=== PATIENT | female | born 1960 | race Two or more races ===

== ENCOUNTER 2018-10-22 09:43 | Outpatient (CLI) | payer OTHER | END 2018-10-22 09:45 | disposition home or self-care (01) | LOC: RAD 09:43 | DX: D06.7 Carcinoma in situ of other parts of cervix (principal); D64.89 Other specified anemias; N39.0 Urinary tract infection, site not specified; R79.1 Abnormal coagulation profile; Z01.818 Encounter for other preprocedural examination ==

== ENCOUNTER 2023-12-15 21:29 | Emergency (ER) | payer OTHER ==
[~2023-12-15] VITALS: Ht 163.8 cm; Wt 77.1 kg
[~2023-12-15 21:29] MED LIST: CELEBREX50 MG PO; FIORICET PO; HYDROCHLOROTH12.5 MG PO; UNISON PO
[2023-12-15] MEDS ORDERED: TETANUS & DIPHTHERIA TOX,ADULT 0.5 ML VIAL IM STA (21:54)
== END 2023-12-15 22:04 | disposition home or self-care (01) ==
LOC: ER 21:29
DX: S60.475A Other superficial bite of left ring finger, initial encounter (principal); W54.0XXA Bitten by dog, initial encounter; Y93.89 Activity, other specified; Y92.89 Other specified places as the place of occurrence of the external cause; Y99.8 Other external cause status; Z88.0 Allergy status to penicillin

== ENCOUNTER → 2024-06-29 | Emergency (ER) | payer OTHER ==
[~2024-06-29] VITALS: Ht 165.1 cm; Wt 73.5 kg
[~2024-06-29] MED LIST changes: +BENZONATATE 100 MG CAPSULE PO ONE; +BENZONATATE200 M1 PO; +FAMOtidine 10 MG/ML (4ML VIAL) IV ONE; +LEVALBUTER0.63 MG/3 IH; +LEVALBUTEROL HCL 1.25 MG/3 ML SOLUTION IH ONE; +MEDROLPACK PO; +METHYLPREDNISOLONE SOD SUCC 40 MG VIAL IM ONE; +PEPCID AC20 MG PO
[2024-06-29 11:48] LABS: HEMATOCRIT 37.2 % (36.0-45.00); HEMOGLOBIN 12.8 g/dL (12.0-15.00); MEAN CELL VOLUME 86.6 fL (80.00-100.00); MEAN CORPUSCULAR HEMOGLOBIN 29.9 pg (27.00-32.0); MEAN CORPUSCULAR HGB CONC 34.5 g/dl (32.0-36.0); PLATELET COUNT 218 K/uL (150-450); RED BLOOD COUNT 4.29 M/uL (4.00-6.00); RED CELL DISTRIBUTION WIDTH 13.5 % (11.5-14.5)
== END | disposition home or self-care (01) ==
LOC: ER 09:02
PROVIDERS: General Practice
DX: J00 Acute nasopharyngitis [common cold] (principal); R05.9 Cough, unspecified; Z20.822 Contact with and (suspected) exposure to COVID-19; Z88.0 Allergy status to penicillin

== ENCOUNTER 2024-08-04 23:29 | Emergency (ER) | payer OTHER ==
[~2024-08-04] VITALS: Ht 162.6 cm; Wt 71.7 kg
[~2024-08-04 23:29] MED LIST changes: -BENZONATATE 100 MG CAPSULE PO ONE; -FAMOtidine 10 MG/ML (4ML VIAL) IV ONE; -LEVALBUTEROL HCL 1.25 MG/3 ML SOLUTION IH ONE; -METHYLPREDNISOLONE SOD SUCC 40 MG VIAL IM ONE
== END 2024-08-05 | disposition left against medical advice (07) ==
LOC: ER 23:31
DX: Z53.21 Procedure and treatment not carried out due to patient leaving prior to being seen by health care provider (principal)